=== PATIENT | male | born 1930 | race Caucasian/White ===

== ENCOUNTER 2016-12-08 12:04 | Inpatient (IN) | payer MEDICARE ==
[2016-12-08] MEDS ORDERED: SODIUM CHLORIDE 0.9% 500 ML IV STA (12:15)
[2016-12-08 12:17] LABS: Glucose,Whole Blood 250 mg/dL (75-99)
--- NOTE | 2016-12-08 12:39 | ED ---
General Adult HPI - General Chief complaint: Altered Mental Status Stated complaint: Alter mental staus Time Seen by Provider: 12/08/16 12:09 Source: EMS, RN notes reviewed, old records reviewed Mode of arrival: EMS Limitations: altered mental status - History of Present Illness Initial comments: This is a 86-year-old male here for evaluation. This patient does for evaluation regarding weakness. Patient himself has no complaints denies any pain denies any issues. Patient sent in for evaluation of elevated white blood cell count. Increasing weakness. Patient is sent from [facility], [facility] facility - Related Data Home Medications Medication Instructions Recorded Confirmed Apixaban [Eliquis] 2.5 mg PO BID@0800,199912/08/16 12/08/16 Aspirin EC [Ecotrin Low Dose] 81 mg PO DAILY@79912/08/16 12/08/16 Atorvastatin Calcium [Lipitor] 20 mg PO HS@199912/08/16 12/08/16 Cholecalciferol (Vitamin D3) 2,000 unit PO DAILY@79912/08/16 12/08/16 [Vitamin D3] Febuxostat [Uloric] 40 mg PO DAILY@79912/08/16 12/08/16 Furosemide [Lasix] 40 mg PO DAILY@79912/08/16 12/08/16 Latanoprost [Xalatan 0.005%] 1 drop BOTH EYES HS@199912/08/16 12/08/16 Levofloxacin [Levaquin] 750 mg PO HS@199912/08/16 12/08/16 Lisinopril [Zestril] 10 mg PO HS@199912/08/16 12/08/16 Magnesium Hydroxide [Milk of 2,400 mg PO DAILY PRN 12/08/16 12/08/16 Magnesia] Memantine HCl [Namenda Xr] 14 mg PO DAILY@79912/08/16 12/08/16 Rivastigmine [Exelon 13.3MG/24Hr 1 patch TRANSDERM DAILY@79912/08/16 12/08/16 Patch] Tamsulosin HCl [Flomax] 0.4 mg PO DAILY@79912/08/16 12/08/16 sitaGLIPtin [Januvia] 50 mg PO DAILY@79912/08/16 12/08/16 Allergies Allergy/AdvReac Type Severity Reaction Status Date / Time shellfish derived [Shellfish] Allergy Unknown Verified 12/08/16 12:22 Review of Systems ROS Statement: Those systems with pertinent positive or pertinent negative responses have been documented in the HPI. ROS Other: All systems not noted in ROS Statement are negative. Past Medical History Past Medical History: Atrial Fibrillation, Dementia, Diabetes Mellitus, Hyperlipidemia, Hypertension History of Any Multi-Drug Resistant Organisms: None Reported Past Surgical History: Heart Catheterization With Stent, Hernia Repair Past Psychological History: No Psychological Hx Reported Smoking Status: Former smoker Past Alcohol Use History: None Reported Past Drug Use History: None Reported General Exam Limitations: altered mental status General appearance: alert, in no apparent distress Head exam: Present: atraumatic, normocephalic, normal inspection Eye exam: Present: normal appearance, PERRL, EOMI. Absent: scleral icterus, conjunctival injection, periorbital swelling ENT exam: Present: normal exam, mucous membranes moist Neck exam: Present: normal inspection. Absent: tenderness, meningismus, lymphadenopathy Respiratory exam: Present: normal lung sounds bilaterally. Absent: respiratory distress, wheezes, rales, rhonchi, stridor Cardiovascular Exam: Present: regular rate, normal rhythm, normal heart sounds. Absent: systolic murmur, diastolic murmur, rubs, gallop, clicks GI/Abdominal exam: Present: soft, normal bowel sounds. Absent: distended, tenderness, guarding, rebound, rigid Extremities exam: Present: normal inspection, full ROM, normal capillary refill. Absent: tenderness, pedal edema, joint swelling, calf tenderness Back exam: Present: normal inspection Neurological exam: Present: alert, oriented X3, CN II-XII intact Psychiatric exam: Present: normal affect, normal mood Skin exam: Present: warm, dry, intact, normal color. Absent: rash Course Vital Signs 12/08/16 12/08/16 12/08/16 12:08 12:50 13:17 Temperature 98.7 F Pulse Rate 80 78 80 Respiratory 20 Rate Blood Pressure 108/64 109/51 135/63 O2 Sat by Pulse 96 96 98 Oximetry 12/08/16 13:47 Temperature Pulse Rate 76 Respiratory Rate Blood Pressure 125/63 O2 Sat by Pulse 96 Oximetry - Reevaluation(s) Reevaluation #1: 12/08/16 14:21 No improvement clinical, condition EKG Findings - EKG Comments: EKG Findings:: EKG shows A. fib rate of 82, QRS 88, QTc 467 Medical Decision Making - Medical Decision Making 86 male to the ER for evaluation for weakness, will admit with going Elevated white count, will admit for blood cultures, IV antibiotics prophylactic, rehydration - Lab Data Result diagrams: 12/08/16 12:29 12/08/16 12:29 Lab Results 12/08/16 12/08/16 12/08/16 Range/Units 12:15 12:29 12:29 WBC 15.6 H (3.8-10.6) k/uL RBC 3.94 L (4.30-5.90) m/uL Hgb 12.7 L (13.0-17.5) gm/dL Hct 37.6 L (39.0-53.0) % MCV 95.6 (80.0-100.0) fL MCH 32.3 (25.0-35.0) pg MCHC 33.7 (31.0-37.0) g/dL RDW 13.7 (11.5-15.5) % Plt Count 413 (150-450) k/uL Neutrophils % 88 % Lymphocytes % 6 % Monocytes % 4 % Eosinophils % 1 % Basophils % 0 % Neutrophils # 13.7 H (1.3-7.7) k/uL Lymphocytes # 0.9 L (1.0-4.8) k/uL Monocytes # 0.7 (0-1.0) k/uL Eosinophils # 0.1 (0-0.7) k/uL Basophils # 0.0 (0-0.2) k/uL PT (9.0-12.0) sec INR (<1.2) APTT (22.0-30.0) sec Sodium (137-145) mmol/L Potassium (3.5-5.1) mmol/L Chloride (98-107) mmol/L Carbon Dioxide (22-30) mmol/L Anion Gap mmol/L BUN (9-20) mg/dL Creatinine (0.66-1.25) mg/dL Est GFR (MDRD) Af Amer (>60 ml/min/1.73 sqM) Est GFR (MDRD) Non-Af (>60 ml/min/1.73 sqM) Glucose (74-99) mg/dL POC Glucose (mg/dL) 250 H (75-99) mg/dL POC Glu Offal Baler Deborah Barber Calcium (8.4-10.2) mg/dL Phosphorus (2.5-4.5) mg/dL Magnesium (1.6-2.3) mg/dL Total Bilirubin (0.2-1.3) mg/dL AST (17-59) U/L ALT (21-72) U/L Alkaline Phosphatase (38-126) U/L Total Creatine Kinase 148 (55-170) U/L CK-MB (CK-2) 0.7 (0.0-2.4) ng/mL CK-MB (CK-2) Rel Index 0.5 Troponin I 0.034 (0.000-0.034) ng/mL Total Protein (6.3-8.2) g/dL Albumin (3.5-5.0) g/dL Urine Color Urine Appearance (Clear) Urine pH (5.0-8.0) Ur Specific [place] (1.001-1.035) Urine Protein (Negative) Urine Glucose (UA) (Negative) Urine Ketones (Negative) Urine Blood (Negative) Urine Nitrite (Negative) Urine Bilirubin (Negative) Urine Urobilinogen (<2.0) mg/dL Ur Leukocyte Esterase (Negative) 12/08/16 12/08/16 12/08/16 Range/Units 12:29 12:29 12:40 WBC (3.8-10.6) k/uL RBC (4.30-5.90) m/uL Hgb (13.0-17.5) gm/dL Hct (39.0-53.0) % MCV (80.0-100.0) fL MCH (25.0-35.0) pg MCHC (31.0-37.0) g/dL RDW (11.5-15.5) % Plt Count (150-450) k/uL Neutrophils % % Lymphocytes % % Monocytes % % Eosinophils % % Basophils % % Neutrophils # (1.3-7.7) k/uL Lymphocytes # (1.0-4.8) k/uL Monocytes # (0-1.0) k/uL Eosinophils # (0-0.7) k/uL Basophils # (0-0.2) k/uL PT 11.9 (9.0-12.0) sec INR 1.2 H (<1.2) APTT 23.1 (22.0-30.0) sec Sodium 159 H (137-145) mmol/L Potassium 3.9 (3.5-5.1) mmol/L Chloride 118 H (98-107) mmol/L Carbon Dioxide 30 (22-30) mmol/L Anion Gap 11 mmol/L BUN 66 H (9-20) mg/dL Creatinine 2.30 H (0.66-1.25) mg/dL Est GFR (MDRD) Af Amer 33 (>60 ml/min/1.73 sqM) Est GFR (MDRD) Non-Af 27 (>60 ml/min/1.73 sqM) Glucose 255 H (74-99) mg/dL POC Glucose (mg/dL) (75-99) mg/dL POC Glu Offal Baler ID Calcium 9.0 (8.4-10.2) mg/dL Phosphorus 4.2 (2.5-4.5) mg/dL Magnesium 2.5 H (1.6-2.3) mg/dL Total Bilirubin 0.6 (0.2-1.3) mg/dL AST 40 (17-59) U/L ALT 60 (21-72) U/L Alkaline Phosphatase 94 (38-126) U/L Total Creatine Kinase (55-170) U/L CK-MB (CK-2) (0.0-2.4) ng/mL CK-MB (CK-2) Rel Index Troponin I (0.000-0.034) ng/mL Total Protein 5.4 L (6.3-8.2) g/dL Albumin 2.9 L (3.5-5.0) g/dL Urine Color Yellow Urine Appearance Clear (Clear) Urine pH 6.5 (5.0-8.0) Ur Specific [place] 1.018 (1.001-1.035) Urine Protein Negative (Negative) Urine Glucose (UA) Negative (Negative) Urine Ketones Negative (Negative) Urine Blood Negative (Negative) Urine Nitrite Negative (Negative) Urine Bilirubin Negative (Negative) Urine Urobilinogen <2.0 (<2.0) mg/dL Ur Leukocyte Esterase Negative (Negative) - Radiology Data Radiology results: report reviewed (Chest x-ray pending), image reviewed Disposition Clinical Impression: Altered mental status, Weakness, Leukocytosis Disposition: ADMITTED IP TO THIS [facility] Condition: Fair Referrals: Atif Hernandez MD [Primary Care Provider] - 1-2 days
[2016-12-08] MEDS: SODIUM CHLORIDE 0.9% 1,000 ML IV STA ×2 (12:48→16:35)
[2016-12-08 12:49] LABS: Basophils % (A) 0 %; CH 31.3; CHCM 32.9; Eosinophils # (A) 0.1 k/uL (0-0.7); Eosinophils % (A) 1 %; HCT 37.6 % (39.0-53.0); HDW 3.26; HGB 12.7 gm/dL (13.0-17.5); Luc # (Auto) 0.22; Luc % (Auto) 1; Lymphocytes # (A) 0.9 k/uL (1.0-4.8); Lymphocytes % (A) 6 %; MCH 32.3 pg (25.0-35.0); MCHC 33.7 g/dL (31.0-37.0); MCV 95.6 fL (80.0-100.0); Mean Platelet Volume 7.5; Monocytes # (A) 0.7 k/uL (0-1.0); Monocytes % (A) 4 %; Neutrophils # (A) 13.7 k/uL (1.3-7.7); Neutrophils % (A) 88 %; RBC 3.94 m/uL (4.30-5.90); RDW 13.7 % (11.5-15.5); WBC 15.6 k/uL (3.8-10.6); WBC (Perox) 15.38
[2016-12-08 12:57] LABS: INR 1.2 (<1.2); Partial Thromboplastin Time 23.1 sec (22.0-30.0); Prothrombin Time 11.9 sec (9.0-12.0)
[2016-12-08 12:58] LABS: Appearance,Urine Clear (Clear); Bilirubin,Urine Negative (Negative); Glucose,Urine (UA) Negative (Negative); Ketones,Urine Negative (Negative); Leukocyte Esterase,Urine Negative (Negative); Nitrite,Urine Negative (Negative); PH, Urine 6.5 (5.0-8.0); Protein,Urine Negative (Negative); Specific Gravity,Urine 1.018 (1.001-1.035); UA Billing (MACRO vs. MICRO) CHEM; Urobilinogen,Urine <2.0 mg/dL (<2.0)
[2016-12-08 12:59] LABS: Magnesium 2.5 mg/dL (1.6-2.3); Phosphorous 4.2 mg/dL (2.5-4.5); Potassium 3.9 mmol/L (3.5-5.1); Total Bilirubin 0.6 mg/dL (0.2-1.3); Total Protein 5.4 g/dL (6.3-8.2)
[2016-12-08 13:28] LABS: Creatine Kinase MB 0.7 ng/mL (0.0-2.4); Troponin I 0.034 ng/mL (0.000-0.034)
[2016-12-08] MEDS ORDERED: SODIUM CHLORIDE 0.9% 1,000 ML IV ONE (14:20)
[2016-12-08] MEDS ORDERED: LEVOFLOXACIN 750MG-D5W PMX 750 MG in DEXTROSE/WATER 1 150ML.BAG IVPB STA (14:20)
--- NOTE | 2016-12-08 14:42 | XR ---
EXAMINATION TYPE: XR chest 2V DATE OF EXAM: 12/08/2016 COMPARISON: Prior chest x-ray 08/27/2009 HISTORY: Pain TECHNIQUE: Frontal and lateral views of the chest are obtained. FINDINGS: Patient is rotated. Cardiac mediastinal silhouette, pulmonary vascularity and dionte are sta ble. There is no evident pneumothorax, or pleural effusion. Surgical clips present in the upper abdom en. The aorta is dense. Difficult to exclude some increased density at the level of the lingula. IMPRESSION: Rotated exam. There may be some minimal airspace disease, scarring or atelectasis at the level of the lingula, follow-up PA and lateral chest x-ray may be of benefit.
--- NOTE | 2016-12-08 15:19 | CT ---
EXAMINATION TYPE: CT brain wo con DATE OF EXAM: 12/08/2016 COMPARISON: NONE INDICATION: Altered mental status. DLP: 1060.50 mGycm, Automated exposure control for dose reduction was used. CONTRAST: None CT of the brain is performed utilizing 3 mm thick sections through the posterior fossa and 3 mm thick sections through the remaining calvarium. Study is performed within 24 hours of arrival to the hosp ital. No abnormal hyperdensity is present to suggest an acute intracranial hemorrhage. No mass lesion is evident. No acute infarcts are evident. Ventricles and sulci are prominent for the patient age. Paranasal sinuses and mastoid air cells within the [id number] are clear. IMPRESSIONS: 1. Atrophy
--- NOTE | 2016-12-08 15:37 | XR ---
EXAMINATION TYPE: XR Hip LT and AP Pelvis DATE OF EXAM: 12/08/2016 COMPARISON: NONE HISTORY: Left hip pain TECHNIQUE: A single AP view of the pelvis is obtained. Two views of the left hip are obtained. FINDINGS: There is no acute fracture/dislocation evident in the pelvis. The hip and sacroiliac join ts appear symmetric. There is some remodeling at the hips, correlate to exclude femoral acetabular i mpingement on the left. The overlying soft tissue appears unremarkable. There are vascular calcificat ions present. Two views of left hip show no acute fracture or dislocation. No focal lytic or sclerotic lesion seen in the proximal left femur. The overlying soft tissue is unremarkable. IMPRESSION: There is no acute fracture or dislocation in the pelvis or left hip. Correlate for possi ble osteoarthritis, femoral acetabular impingement syndrome.
[2016-12-08] MEDS ORDERED: MAGNESIUM HYDROXIDE 2,400 MG/10 ML CUP PO PRN (16:39)
[2016-12-08 17:51] LABS: Glucose,Whole Blood 298 mg/dL (75-99)
[2016-12-08] MEDS: INSULIN LISPRO (humaLOG) 300 UNIT/3 ML VIAL SQ SCH ×2 (18:00→20:38)
[2016-12-08 19:12] LABS: Calcium 8.7 mg/dL (8.4-10.2); Potassium 4.3 mmol/L (3.5-5.1)
[2016-12-08] MEDS: DEXTROSE 5% IN WATER 1,000 ML IV SCH (19:42)
[2016-12-08] MEDS: LATANOPROST 0.005% OPHTH DROPS 2.5 ML BTL BOTH EYES SCH (19:42)
[2016-12-08] MEDS: ATORVASTATIN 20 MG TAB PO SCH (19:43)
[2016-12-08] MEDS: MEMANTINE 5 MG TAB PO SCH (19:43)
[2016-12-08] MEDS: APIXABAN 2.5 MG TABLET PO SCH (19:43)
[2016-12-08 20:41] LABS: Glucose,Whole Blood 257 mg/dL (75-99)
[2016-12-08 22:06] LABS: Hemoglobin A1C 7.2 % (4.2-6.1)
[2016-12-09 00:21] LABS: Calcium 8.7 mg/dL (8.4-10.2); Potassium 3.7 mmol/L (3.5-5.1)
[2016-12-09] MEDS: DEXTROSE 5% IN WATER 1,000 ML IV SCH ×3 (03:16→21:44)
[2016-12-09 07:17] LABS: Glucose,Whole Blood 225 mg/dL (75-99)
[2016-12-09] MEDS: ALLOPURINOL 100 MG TAB PO SCH (07:26)
[2016-12-09] MEDS: APIXABAN 2.5 MG TABLET PO SCH ×2 (07:26→21:31)
[2016-12-09] MEDS: ASPIRIN 81 MG CHEW PO SCH (07:26)
[2016-12-09] MEDS: LINAGLIPTIN 5 MG TABLET PO SCH (07:27)
[2016-12-09] MEDS: CHOLECALCIFEROL 1,000 UNIT TAB PO SCH (07:27)
[2016-12-09] MEDS: TAMSULOSIN 0.4 MG CAP.ER.24H PO SCH (07:27)
[2016-12-09] MEDS: MEMANTINE 5 MG TAB PO SCH ×2 (07:27→21:32)
[2016-12-09] MEDS: RIVASTIGMINE 13.3MG/24HR PATCH TRANSDERM SCH (07:49)
[2016-12-09] MEDS: INSULIN LISPRO (humaLOG) 300 UNIT/3 ML VIAL SQ SCH ×4 (07:49→21:33)
[2016-12-09] MEDS ORDERED: ENOXAPARIN 40 MG/0.4 ML SYRINGE SQ SCH (09:00)
[2016-12-09 09:03] LABS: Basophils % (A) 0 %; CH 32.4; CHCM 33.3; Eosinophils # (A) 0.1 k/uL (0-0.7); Eosinophils % (A) 1 %; HCT 36.7 % (39.0-53.0); HDW 3.25; HGB 11.7 gm/dL (13.0-17.5); Luc # (Auto) 0.14; Luc % (Auto) 1; Lymphocytes # (A) 0.8 k/uL (1.0-4.8); Lymphocytes % (A) 6 %; MCH 31.3 pg (25.0-35.0); MCHC 31.9 g/dL (31.0-37.0); MCV 98.1 fL (80.0-100.0); Mean Platelet Volume 7.9; Monocytes # (A) 0.5 k/uL (0-1.0); Monocytes % (A) 3 %; Neutrophils # (A) 12.6 k/uL (1.3-7.7); Neutrophils % (A) 89 %; RBC 3.75 m/uL (4.30-5.90); WBC 14.2 k/uL (3.8-10.6); WBC (Perox) 14.44
[2016-12-09 09:21] LABS: Calcium 8.5 mg/dL (8.4-10.2); Potassium 3.7 mmol/L (3.5-5.1)
[2016-12-09 12:21] LABS: Glucose,Whole Blood 189 mg/dL (75-99)
[2016-12-09] MEDS ORDERED: LEVOFLOXACIN 750 MG TAB PO SCH (14:00)
--- NOTE | 2016-12-09 14:09 | P.HPIM ---
History of Present Illness H&P Date: 12/09/16 Chief Complaint: Mental status change This is an 86-year-old male patient of Dr. Hernandez with a past medical history of diabetes mellitus type 2, benign prostatic hypertrophy, hypertension , hyperlipidemia, coronary artery disease status post 3 stents, glaucoma, chronic atrial fibrillation on eliquis, dementia, obstructive sleep apnea, gout , psoriasis, patient is wheelchair bound and currently residing at [facility]. Patient's and daughter are at the bedside and give history. Apparently patient had a couple strokes one half weeks ago was the most recent. He has had difficulty of swallowing and holds food in his mouth for the last couple of days and also choking on food. He does normally recognize his and daughter and at this time family recognizes his but does not seem to be able to recall his daughter's name. He does not currently follow with the neurologist. He also has pain to the left hip with left leg contracture which is new. He came into [facility] emergency center for evaluation. He was found to have an elevated white count of 15.66, UN 66 and creatinine 2.3 and sodium of 159. Urinalysis was clear, nitrate and leukoesterase negative. Chest x-ray showed scarring or atelectasis at the level of the lingula. CAT scan of the brain showed atrophy. Left hip and pelvis x-rays show correlate for osteoarthritis, femoral acetabular impingement syndrome. No acute fracture or dislocation of the pelvis or left hip. Patient was admitted to the [facility] floor and consult requested with Dr. Tomas for acute renal failure. The therapy has evaluated him and plans to start a pured diet with thickened liquids. PT and OT added. Neurology consult also added. Blood culture and urine culture are in process. There is a stage II pressure ulcer to the right foot present on admission and waffle boot has been placed. Review of Systems ROS unobtainable: due to mental status All systems: negative Constitutional: Reports weakness, Denies chills, Denies fever Eyes: denies blurred vision, denies pain Ears, nose, mouth and throat: Reports dysphagia, Denies headache, Denies mouth pain, Denies sore throat Cardiovascular: Denies chest pain, Denies shortness of breath Respiratory: Reports cough, Denies cough with sputum, Denies dyspnea, Denies excessive sputum, Denies hemoptysis, Denies home oxygen, Denies wheezing Gastrointestinal: Denies abdominal pain, Denies diarrhea, Denies nausea, Denies vomiting Genitourinary: Reports incontinence Musculoskeletal: Denies myalgias Musculoskeletal: left: hip pain, hip stiffness Integumentary: Reports wounds, Denies pruritus, Denies rash Neurological: Denies numbness, Denies weakness Psychiatric: Denies anxiety, Denies depression Endocrine: Denies fatigue, Denies weight change Past Medical History Past Medical History: Atrial Fibrillation, Coronary Artery Disease (CAD), Dementia, Diabetes Mellitus, Hyperlipidemia, Hypertension, Osteoarthritis (OA), Prostate Disorder, Sleep Apnea/CPAP/BIPAP Additional Past Medical History / Comment(s): gout, psoriases,incont of stool and urine wears a brief. has a bridge not sure if upper or lower. History of Any Multi-Drug Resistant Organisms: None Reported Past Surgical History: Cholecystectomy, Heart Catheterization With Stent, Hernia Repair Additional Past Surgical History / Comment(s): "3 cardaic stents", [place] cataracts , colonoscopy Past Anesthesia/Blood Transfusion Reactions: No Reported Reaction Date of Last Stent Placement:: UNK Smoking Status: Former smoker Additional Past Alcohol Use History / Comment(s): Patient was a smoker from 1949 and quit in 1968 at one pack per day. Patient is currently residing at [facility] foster assisted. Patient is nonambulatory and wheelchair bound. - Past Family History Father Family Medical History: Myocardial Infarction (PR) Additional Family Medical History / Comment(s): AT AGE 87 Mother Family Medical History: Diabetes Mellitus Additional Family Medical History / Comment(s): Mother at age 70 with consultations from diabetes. Brother(s) Additional Family Medical History / Comment(s): Patient had 3 brothers and all have passed. They had history of diabetes with complications, tremors and one brother had abdominal aneurysm. Sister(s) Additional Family Medical History / Comment(s): Patient had a total of 5 sisters and 3 have passed. They had history of atrial fibrillation and one from natural causes. Patient has 2 sisters still alive and one has atrial fibrillation. Son(s) Additional Family Medical History / Comment(s): Patient had 1 son that from a neurosarcoma. Patient has one daughter alive with no major medical problems. Medications and Allergies Home Medications Medication Instructions Recorded Confirmed Type Apixaban [Eliquis] 2.5 mg PO BID@08,199912/08/16 12/08/16 History Aspirin EC [Ecotrin Low Dose] 81 mg PO DAILY@79912/08/16 12/08/16 History Atorvastatin Calcium [Lipitor] 20 mg PO HS@199912/08/16 12/08/16 History Cholecalciferol (Vitamin D3) 2,000 unit PO DAILY@79912/08/16 12/08/16 History [Vitamin D3] Febuxostat [Uloric] 40 mg PO DAILY@79912/08/16 12/08/16 History Furosemide [Lasix] 40 mg PO DAILY@79912/08/16 12/08/16 History Latanoprost [Xalatan 0.005%] 1 drop BOTH EYES HS@199912/08/16 12/08/16 History Levofloxacin [Levaquin] 750 mg PO HS@199912/08/16 12/08/16 History Lisinopril [Zestril] 10 mg PO HS@199912/08/16 12/08/16 History Magnesium Hydroxide [Milk of 2,400 mg PO DAILY PRN 12/08/16 12/08/16 History Magnesia] Memantine HCl [Namenda Xr] 14 mg PO DAILY@79912/08/16 12/08/16 History Rivastigmine [Exelon 13.3MG/24Hr 1 patch TRANSDERM DAILY@79912/08/16 12/08/16 History Patch] Tamsulosin HCl [Flomax] 0.4 mg PO DAILY@79912/08/16 12/08/16 History sitaGLIPtin [Januvia] 50 mg PO DAILY@79912/08/16 12/08/16 History Allergies Allergy/AdvReac Type Severity Reaction Status Date / Time shellfish derived [Shellfish] Allergy Unknown Verified 12/08/16 12:22 Physical Exam Vitals: Vital Signs Temp Pulse Pulse Resp BP BP Pulse Ox 12/09/16 07:00 97.7 F 79 18 125/65 99 12/08/16 23:00 98.7 F 76 16 108/60 100 12/08/16 16:00 96.9 F L 83 18 133/73 96 12/08/16 15:42 84 18 146/69 100 12/08/16 14:50 97.4 F L 79 16 108/63 98 12/08/16 13:47 76 125/63 96 12/08/16 13:17 80 135/63 98 12/08/16 12:50 78 109/51 96 12/08/16 12:08 98.7 F 80 20 108/64 96 Intake and Output 12/08/16 12/09/16 12/09/16 22:59 06:59 14:59 Other: Voiding Method Incontinent Incontinent Incontinent # Voids 1 1 Weight 86 kg Gen: This is an 86-year-old male patient. He is sitting up in bed and appears to be in no acute distress. HEENT: Head is atraumatic, normocephalic. Pupils equal, round. Sclerae is anicteric. NECK: Supple. No JVD. No lymphadenopathy. No thyromegaly. LUNGS: Clear to auscultation. No wheezes or rhonchi. No intercostal retractions. HEART: Regular rate and rhythm. No murmur. ABDOMEN: Soft. Bowel sounds are present. No masses. No tenderness. EXTREMITIES: No pedal edema. No calf tenderness. Contracture noted of the left leg. Waffle boot in place to the right foot. Spastic rigidity to the left upper arm. No tremors. NEUROLOGICAL: Patient is awake, alert and oriented x1. Patient is having trouble following simple commands. Results CBC & Chem 7: 12/10/16 07:48 12/10/16 07:48 Labs: Abnormal Lab Results - Last 24 Hours (Table) 12/08/16 12/08/16 12/08/16 Range/Units 12:15 12:29 12:29 WBC 15.6 H (3.8-10.6) k/uL RBC 3.94 L (4.30-5.90) m/uL Hgb 12.7 L (13.0-17.5) gm/dL Hct 37.6 L (39.0-53.0) % Neutrophils # 13.7 H (1.3-7.7) k/uL Lymphocytes # 0.9 L (1.0-4.8) k/uL INR (<1.2) Sodium 159 H (137-145) mmol/L Chloride 118 H (98-107) mmol/L Carbon Dioxide (22-30) mmol/L BUN 66 H (9-20) mg/dL Creatinine 2.30 H (0.66-1.25) mg/dL Glucose 255 H (74-99) mg/dL POC Glucose (mg/dL) 250 H (75-99) mg/dL Hemoglobin A1c (4.2-6.1) % Magnesium 2.5 H (1.6-2.3) mg/dL Total Protein 5.4 L (6.3-8.2) g/dL Albumin 2.9 L (3.5-5.0) g/dL 12/08/16 12/08/16 12/08/16 Range/Units 12:29 12:29 17:46 WBC (3.8-10.6) k/uL RBC (4.30-5.90) m/uL Hgb (13.0-17.5) gm/dL Hct (39.0-53.0) % Neutrophils # (1.3-7.7) k/uL Lymphocytes # (1.0-4.8) k/uL INR 1.2 H (<1.2) Sodium (137-145) mmol/L Chloride (98-107) mmol/L Carbon Dioxide (22-30) mmol/L BUN (9-20) mg/dL Creatinine (0.66-1.25) mg/dL Glucose (74-99) mg/dL POC Glucose (mg/dL) 298 H (75-99) mg/dL Hemoglobin A1c 7.2 H (4.2-6.1) % Magnesium (1.6-2.3) mg/dL Total Protein (6.3-8.2) g/dL Albumin (3.5-5.0) g/dL 12/08/16 12/08/16 12/08/16 Range/Units 18:45 20:34 21:39 WBC (3.8-10.6) k/uL RBC (4.30-5.90) m/uL Hgb (13.0-17.5) gm/dL Hct (39.0-53.0) % Neutrophils # (1.3-7.7) k/uL Lymphocytes # (1.0-4.8) k/uL INR (<1.2) Sodium 159 H 158 H (137-145) mmol/L Chloride 119 H (98-107) mmol/L Carbon Dioxide 31 H (22-30) mmol/L BUN 64 H (9-20) mg/dL Creatinine 2.07 H (0.66-1.25) mg/dL Glucose 298 H (74-99) mg/dL POC Glucose (mg/dL) 257 H (75-99) mg/dL Hemoglobin A1c (4.2-6.1) % Magnesium (1.6-2.3) mg/dL Total Protein (6.3-8.2) g/dL Albumin (3.5-5.0) g/dL 12/08/16 12/09/16 12/09/16 Range/Units 23:46 06:54 08:43 WBC (3.8-10.6) k/uL RBC (4.30-5.90) m/uL Hgb (13.0-17.5) gm/dL Hct (39.0-53.0) % Neutrophils # (1.3-7.7) k/uL Lymphocytes # (1.0-4.8) k/uL INR (<1.2) Sodium 157 H 155 H (137-145) mmol/L Chloride 119 H 119 H (98-107) mmol/L Carbon Dioxide (22-30) mmol/L BUN 59 H 51 H (9-20) mg/dL Creatinine 1.90 H 1.86 H (0.66-1.25) mg/dL Glucose 148 H 258 H (74-99) mg/dL POC Glucose (mg/dL) 225 H (75-99) mg/dL Hemoglobin A1c (4.2-6.1) % Magnesium (1.6-2.3) mg/dL Total Protein (6.3-8.2) g/dL Albumin (3.5-5.0) g/dL 12/09/16 Range/Units 08:45 WBC 14.2 H (3.8-10.6) k/uL RBC 3.75 L (4.30-5.90) m/uL Hgb 11.7 L (13.0-17.5) gm/dL Hct 36.7 L (39.0-53.0) % Neutrophils # 12.6 H (1.3-7.7) k/uL Lymphocytes # 0.8 L (1.0-4.8) k/uL INR (<1.2) Sodium (137-145) mmol/L Chloride (98-107) mmol/L Carbon Dioxide (22-30) mmol/L BUN (9-20) mg/dL Creatinine (0.66-1.25) mg/dL Glucose (74-99) mg/dL POC Glucose (mg/dL) (75-99) mg/dL Hemoglobin A1c (4.2-6.1) % Magnesium (1.6-2.3) mg/dL Total Protein (6.3-8.2) g/dL Albumin (3.5-5.0) g/dL Microbiology - Last 24 Hours (Table) 12/08/16 12:40 Urine Culture - Preliminary Urine,Catheterized Thrombosis Risk Factor Assmnt - DVT/VTE Prophylaxis DVT/VTE Prophylaxis: Pharmacologic Prophylaxis ordered Assessment and Plan Plan: 1. Metabolic encephalopathy secondary to hypernatremia, dehydration, acute kidney injury and possible aspiration pneumonia. Continue IV fluids of D5 at 100 mL per hour. Consult with neurology, nephrology. PT, OT, speech therapy. Diet recommended by speech is pureed with thickened liquids. IV antibiotics switched to Zosyn. Lasix and lisinopril placed on hold. 2. Chronic atrial fibrillation. Continue eliquis. 3. Coronary artery disease status post 3 stents. Continue Lipitor 20 mg at bedtime, aspirin 81 mg daily. 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 Patient has been on Exelon patch. Neurology consult. 5. Left hip pain and contracture with negative x-rays. Physical therapy and occupational therapy. Patient is normally wheelchair bound. 6. Recent stroke. Continue aspirin 81 mg daily, Lipitor 20 mg daily. 7. Diabetes mellitus type 2. Continue Januvia/tradjenta and Humalog scale before meals and at bedtime. 8. Benign prostatic hypertrophy. Continue Flomax 0.4 mg daily. 9. Hypertension. Lisinopril and Lasix placed on hold. 10. Gout. Continue Uloric. 11. Hyperlipidemia. Continue Lipitor. 12. DVT prophylaxis. Patient is on eliquis. 13. Gastric intestinal prophylaxis. Pepcid. 14. Obstructive sleep apnea on CPAP Patient will be admitted to the hospital for a minimum of 2 night stay. Discharge plan: Patient will be returning to [facility] Impression and plan of care have been directed as dictated by the signing physician. Angela Hartley nurse practitioner acting as scribe for signing physician.
[2016-12-09] MEDS: PIPERACILLIN-TAZOBACTAM 3.375 GM in DEXTROSE/WATER 1 50ML.BAG IVPB SCH ×2 (15:00→23:38)
[2016-12-09 15:38] VITALS: BMI 29.7
[2016-12-09 16:51] LABS: Glucose,Whole Blood 223 mg/dL (75-99)
[2016-12-09 21:25] LABS: Glucose,Whole Blood 132 mg/dL (75-99)
[2016-12-09] MEDS: LATANOPROST 0.005% OPHTH DROPS 2.5 ML BTL BOTH EYES SCH (21:32)
[2016-12-09] MEDS: ATORVASTATIN 20 MG TAB PO SCH (21:32)
--- NOTE | 2016-12-09 21:55 | CONS ---
CONSULTATION DATE OF CONSULTATION: 12/09/2016 REASON FOR CONSULT: Renal failure, hypernatremia. HISTORY OF PRESENT ILLNESS: Patient is an 86-year-old male who was admitted to the hospital with decreased oral intake. He had been getting progressively weak and was not able to swallow, according to the family. The patient was noted to have a serum sodium of 159 on admission. He was initially maintained on normal saline. Sodium stayed about 159 and then his IV fluids were switched to D5W. Today serum sodium is at 155. Serum creatinine was 2.3 on initial admission, now down to 1.86. We do not have previous labs available for comparison. Currently patient is incontinent and in diapers. His blood pressure was on the lower side with systolic around 108 mmHg. At home there is no history of use of NSAIDs. Patient was on SARAHI inhibitors. PAST MEDICAL HISTORY: 1. Atrial fibrillation. 2. Dementia. 3. Type 2 diabetes. 4. Hyperlipidemia. 5. Hypertension. 6. Coronary artery disease. PAST SURGICAL HISTORY: 1. Cardiac catheterization with coronary stent placement. 2. Hernia repair. Patient is a former smoker. MEDICATIONS: Medications at home included: 1. Namenda. 2. Flomax. 3. Januvia. 4. Vitamin D3. 5. Uloric. 6. Lasix. 7. Levaquin. 8. Zestril. 9. Milk of magnesia. 10.Lipitor. 11.Eliquis. 12.Aspirin. ALLERGIES: ALLERGIES include SHELLFISH. PHYSICAL EXAMINATION: On examination, patient is currently lying in bed. He is comfortable. He is not in any acute distress. Blood pressure is 105/57, heart rate 66 per minute. He is afebrile. EXAMINATION OF THE HEART: S1, S2. EXAMINATION OF LUNGS: Bilateral breath sounds are heard. ABDOMEN: Soft, non-tender, obese. Examination of lower extremities shows no evidence of edema. Patient is weak on his left side. He has had a previous stroke. His left leg is flexed and, according to family, he is not able to extend it. Patient is moving his right arm and right leg appropriately. 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 LABS: Sodium 155, potassium 3.7, BUN 51, serum creatinine 1.86, hemoglobin 11.7 g/dL. UA is completely benign. ASSESSMENT: 1. Acute kidney injury, prerenal, currently improving with IV hydration. Continue with IV fluids. 2. Hypernatremia associated with free water deficit and volume depletion. Continue with the D5W for now. 3. Decreased oral intake in a patient with underlying dementia and inability to swallow. He was being maintained on a pureed diet with thickened liquids. He will be evaluated by PT and OT and Speech Therapy. 4. Chronic atrial fibrillation, maintained on Eliquis. 5. Coronary artery disease, status post coronary stents. PLAN: Continue with the D5W for now. Repeat labs in a.m. Avoid any other nephrotoxic agents. Continue to hold off on SARAHI inhibitors for now. Thank you for this consultation. We will continue to follow the patient with you during his hospitalization. MMODL / IJN: [id number] /
[2016-12-10 07:24] LABS: Glucose,Whole Blood 282 mg/dL (75-99)
[2016-12-10] MEDS: INSULIN LISPRO (humaLOG) 300 UNIT/3 ML VIAL SQ SCH ×4 (08:13→21:13)
[2016-12-10] MEDS: ASPIRIN 81 MG CHEW PO SCH (08:14)
[2016-12-10] MEDS: CHOLECALCIFEROL 1,000 UNIT TAB PO SCH (08:14)
[2016-12-10] MEDS: PIPERACILLIN-TAZOBACTAM 3.375 GM in DEXTROSE/WATER 1 50ML.BAG IVPB SCH ×2 (08:14→17:02)
[2016-12-10] MEDS: ALLOPURINOL 100 MG TAB PO SCH (08:14)
[2016-12-10] MEDS: LINAGLIPTIN 5 MG TABLET PO SCH (08:14)
[2016-12-10] MEDS: RIVASTIGMINE 13.3MG/24HR PATCH TRANSDERM SCH (08:14)
[2016-12-10] MEDS: TAMSULOSIN 0.4 MG CAP.ER.24H PO SCH (08:15)
[2016-12-10] MEDS: FAMOTIDINE 20 MG TAB PO SCH (08:15)
[2016-12-10] MEDS: MEMANTINE 5 MG TAB PO SCH ×2 (08:15→20:35)
[2016-12-10 08:27] LABS: INR 1.3 (<1.2)
[2016-12-10 08:42] LABS: Calcium 8.5 mg/dL (8.4-10.2); Potassium 3.8 mmol/L (3.5-5.1); Total Bilirubin 0.8 mg/dL (0.2-1.3); Total Protein 5.2 g/dL (6.3-8.2)
[2016-12-10 08:51] LABS: Basophils % (A) 0 %; CH 31.2; CHCM 32.8; Eosinophils # (A) 0.1 k/uL (0-0.7); Eosinophils % (A) 1 %; HCT 37.7 % (39.0-53.0); HDW 3.26; HGB 12.6 gm/dL (13.0-17.5); Luc # (Auto) 0.13; Luc % (Auto) 1; Lymphocytes # (A) 0.9 k/uL (1.0-4.8); Lymphocytes % (A) 6 %; MCH 31.8 pg (25.0-35.0); MCHC 33.3 g/dL (31.0-37.0); MCV 95.7 fL (80.0-100.0); Mean Platelet Volume 7.2; Monocytes # (A) 0.6 k/uL (0-1.0); Monocytes % (A) 4 %; Neutrophils # (A) 13.4 k/uL (1.3-7.7); Neutrophils % (A) 89 %; RBC 3.94 m/uL (4.30-5.90); RDW 13.5 % (11.5-15.5); WBC 15.1 k/uL (3.8-10.6); WBC (Perox) 15.41
--- NOTE | 2016-12-10 10:27 | P.PN ---
Subjective Patient is seen in follow-up for acute kidney injury and hypernatremia. His sodium level was 159 on admission and has been gradually improving. It is around 149 this morning. Creatinine was also 2.3 on admission and is down to 1.75 today. Patient's currently resting in bed. He is not a very reliable historian due to underlying dementia. Oral intake remains relatively poor. Hemodynamically stable. Vital signs are stable. General: The patient appeared well nourished and normally developed. HEENT: Head exam is unremarkable. Neck is without jugular venous distension. LUNGS: Lungs are clear to auscultation and percussion. Breath sounds decreased. HEART: Rate and Rhythm are regular. First and second heart sounds normal. No murmurs, rubs or gallops. ABDOMEN: Abdominal exam reveals normal bowel sounds. Non-tender and non- distended. No evidence of peritonitis. EXTREMITITES: No clubbing, cyanosis, or edema. Objective - Vital Signs Vital signs: Vital Signs Temp 96.4 F L 12/10/16 07:00 Pulse 77 12/10/16 07:00 Resp 16 12/10/16 07:00 BP 120/79 12/10/16 07:00 Pulse Ox 97 12/10/16 07:00 Intake & Output 12/09/16 12/10/16 12/10/16 18:59 06:59 18:59 Intake Total 850 Balance 850 Weight 86 kg Intake: Oral 850 Other: Voiding Method Incontinent Incontinent Incontinent # Voids 1 2 # Bowel Movements 2 - Labs CBC & Chem 7: 12/10/16 07:48 12/10/16 07:48 Labs: Abnormal Lab Results - Last 24 Hours (Table) 12/09/16 12/09/16 12/09/16 Range/Units 12:16 16:48 20:44 WBC (3.8-10.6) k/uL RBC (4.30-5.90) m/uL Hgb (13.0-17.5) gm/dL Hct (39.0-53.0) % Neutrophils # (1.3-7.7) k/uL Lymphocytes # (1.0-4.8) k/uL PT (9.0-12.0) sec INR (<1.2) Sodium (137-145) mmol/L Chloride (98-107) mmol/L BUN (9-20) mg/dL Creatinine (0.66-1.25) mg/dL Glucose (74-99) mg/dL POC Glucose (mg/dL) 189 H 223 H 132 H (75-99) mg/dL Total Protein (6.3-8.2) g/dL Albumin (3.5-5.0) g/dL 12/10/16 12/10/16 12/10/16 Range/Units 07:18 07:48 07:48 WBC 15.1 H (3.8-10.6) k/uL RBC 3.94 L (4.30-5.90) m/uL Hgb 12.6 L (13.0-17.5) gm/dL Hct 37.7 L (39.0-53.0) % Neutrophils # 13.4 H (1.3-7.7) k/uL Lymphocytes # 0.9 L (1.0-4.8) k/uL PT 13.0 H (9.0-12.0) sec INR 1.3 H (<1.2) Sodium (137-145) mmol/L Chloride (98-107) mmol/L BUN (9-20) mg/dL Creatinine (0.66-1.25) mg/dL Glucose (74-99) mg/dL POC Glucose (mg/dL) 282 H (75-99) mg/dL Total Protein (6.3-8.2) g/dL Albumin (3.5-5.0) g/dL 12/10/16 Range/Units 07:48 WBC (3.8-10.6) k/uL RBC (4.30-5.90) m/uL Hgb (13.0-17.5) gm/dL Hct (39.0-53.0) % Neutrophils # (1.3-7.7) k/uL Lymphocytes # (1.0-4.8) k/uL PT (9.0-12.0) sec INR (<1.2) Sodium 149 H (137-145) mmol/L Chloride 113 H (98-107) mmol/L BUN 40 H (9-20) mg/dL Creatinine 1.75 H (0.66-1.25) mg/dL Glucose 250 H (74-99) mg/dL POC Glucose (mg/dL) (75-99) mg/dL Total Protein 5.2 L (6.3-8.2) g/dL Albumin 2.7 L (3.5-5.0) g/dL Microbiology - Last 24 Hours (Table) 12/08/16 12:40 Urine Culture - Final Urine,Catheterized 12/08/16 12:29 Blood Culture - Preliminary Blood No Growth after 24 hours Assessment and Plan Plan: Assessment: #1. Nonoliguric acute kidney injury mostly prerenal due to poor oral intake and further worsened with the use of SARAHI inhibitor and diuretics. Improving. Creatinine down to 1.75 today. #2. Hypernatremia secondary to lack of oral water intake. Improving. #3. Chronic atrial fibrillation maintained on anticoagulation. #4. Dementia. Plan: Continue D5W to be run at 100 mL an hour. Encouraged oral intake, including water as able to tolerate. Avoid nephrotoxic agents and hypotensive episodes. Repeat electrolytes in the morning.
--- NOTE | 2016-12-10 11:14 | CONS ---
CONSULTATION DATE OF CONSULTATION: 12/09/2016 CHIEF COMPLAINT: Altered mental status. HISTORY OF PRESENT ILLNESS: Mr. Aleman is a pleasant 86-year-old, male, who is being evaluated by the neurology service per the request of Dr. Hernandez for altered mental status. The patient was brought into [facility] Emergency Room for increasing confusion for the past few days. The patient is a very poor historian and the history was obtained from the chart. The patient does have history of advanced Alzheimer's dementia and does have a baseline of disorientation. A CT scan of the brain was done, which showed no acute intracranial abnormalities. There was generalized atrophy seen. His CBC showed leukocytosis at 14.2 and mild anemia with a hemoglobin of 11.7. His basic metabolic profile showed hypernatremia at 155 and renal insufficiency with a BUN of 51 and creatinine of 1.86. His glucose level was elevated at 258. His urinalysis was normal. According to nursing staff, the patient had a recent stroke and his cognitive status has been worsened since then. He is on Eliquis and aspirin at home. At the time of my evaluation, the patient is lying in his bed and appears to be in no acute distress. He is awake and follows simple commands only. PAST MEDICAL HISTORY: Atrial fibrillation, coronary artery disease, Alzheimer's dementia, diabetes, dyslipidemia, hypertension, arthritis, obstructive sleep apnea, gout, history of cholecystectomy and hernia repair and coronary artery stent placement. SOCIAL HISTORY: The patient is a former smoker. There is no history of any alcohol or drug use. He currently resides at [facility] and is nonambulatory. FAMILY HISTORY: Positive for heart disease and diabetes. HOME MEDICATIONS: Reviewed in the chart. ALLERGIES: SHELL FISH. REVIEW OF SYSTEMS: Unable to obtain due to confusion. PHYSICAL EXAM: Vital signs show a temperature of 96.7, pulse 66, respiration 18, blood pressure 105/57. GENERAL APPEARANCE: The patient is a well-developed, elderly male, who appears to be in no acute distress. HEENT: Normocephalic, atraumatic, no facial asymmetry is seen. NECK: Supple with no masses felt. CARDIOVASCULAR: Regular rate and rhythm. ABDOMEN: Nontender, nondistended. Extremities showed trace edema with no clubbing seen. NEUROLOGICAL EXAM: The patient is awake and oriented to person only. He does follow simple commands. He moves all 4 extremities to command with no obvious lateralizing weakness. No facial asymmetry is noticed on cranial nerve testing. Sensory examination was inconsistent as the patient was not answering questions appropriately. No seizure-like activity is seen. IMPRESSION: 1. Altered mental status. 2. Hypernatremia. 3. Acute renal insufficiency. 4. Dehydration. 5. History of Alzheimer's dementia. 6. Multifactorial encephalopathy. 7. History of stroke. RECOMMENDATION: The patient's exact baseline is unknown but he does have history of advanced dementia and currently lives in an adult foster fdc. He likely has acute on top of chronic encephalopathy given his chronic dementia and now his hypernatremia and renal failure. Continue IV hydration as tolerated. I do recommend a nephrology consultation. Repeat labs have been ordered for the morning. An EEG has been ordered. Continue Eliquis and aspirin. I will continue to follow with you. Further Recommendations to follow. Thank you, Dr. Hernandez, for allowing me to participate in the care of your patient. If you have any questions, please feel free to contact me. MONIKA / CASAN: [phone] / JOHN
[2016-12-10] MEDS: HYDROCORTISONE SUPPOSITORY 25 MG SUPP RECTAL SCH ×2 (11:43→21:13)
[2016-12-10 11:59] LABS: Glucose,Whole Blood 263 mg/dL (75-99)
[2016-12-10] MEDS: DEXTROSE 5% IN WATER 1,000 ML IV SCH ×2 (14:04→21:13)
--- NOTE | 2016-12-10 14:55 | P.PN ---
Subjective This is an 86-year-old male patient of Dr. Hernandez with a past medical history of diabetes mellitus type 2, benign prostatic hypertrophy, hypertension , hyperlipidemia, coronary artery disease status post 3 stents, glaucoma, chronic atrial fibrillation on eliquis, dementia, obstructive sleep apnea, gout , psoriasis, patient is wheelchair bound and currently residing at [facility]. Patient's and daughter are at the bedside and give history. Apparently patient had a couple strokes one half weeks ago was the most recent. He has had difficulty of swallowing and holds food in his mouth for the last couple of days and also choking on food. He does normally recognize his and daughter and at this time family recognizes his but does not seem to be able to recall his daughter's name. He does not currently follow with the neurologist. He also has pain to the left hip with left leg contracture which is new. He came into [facility] emergency center for evaluation. He was found to have an elevated white count of 15.66, UN 66 and creatinine 2.3 and sodium of 159. Urinalysis was clear, nitrate and leukoesterase negative. Chest x-ray showed scarring or atelectasis at the level of the lingula. CAT scan of the brain showed atrophy. Left hip and pelvis x-rays show correlate for osteoarthritis, femoral acetabular impingement syndrome. No acute fracture or dislocation of the pelvis or left hip. Patient was admitted to the [facility] floor and consult requested with Dr. Tomas for acute renal failure. The therapy has evaluated him and plans to start a pured diet with thickened liquids. PT and OT added. Neurology consult also added. Blood culture and urine culture are in process. There is a stage II pressure ulcer to the right foot present on admission and waffle boot has been placed. 12/10: Patient is followed by nephrology. Sodium is down to 149 and creatinine is down 1.75. Patient is sitting up and eating his breakfast on his own without assistance. Patient's and daughter are at the bedside. They are asking for a hospital bed at [facility] which will be ordered. He will be continued on IV fluids of D5W at 100 mL per hour. Objective - Vital Signs Vital signs: Vital Signs Temp 96.4 F L 12/10/16 07:00 Pulse 77 12/10/16 07:00 Resp 16 12/10/16 07:00 BP 120/79 12/10/16 07:00 Pulse Ox 97 12/10/16 07:00 Intake & Output 12/09/16 12/10/16 12/10/16 18:59 06:59 18:59 Intake Total 850 Balance 850 Weight 86 kg Intake: Oral 850 Other: Voiding Method Incontinent Incontinent Incontinent # Voids 1 2 # Bowel Movements 2 - Exam Gen: This is an 86-year-old male patient. He is sitting up in bed and appears to be in no acute distress. HEENT: Head is atraumatic, normocephalic. Pupils equal, round. Sclerae is anicteric. NECK: Supple. No JVD. No lymphadenopathy. No thyromegaly. LUNGS: Clear to auscultation. No wheezes or rhonchi. No intercostal retractions. HEART: Regular rate and rhythm. No murmur. ABDOMEN: Soft. Bowel sounds are present. No masses. No tenderness. EXTREMITIES: No pedal edema. No calf tenderness. Contracture noted of the left leg. Waffle boot in place to the right foot. Spastic rigidity to the left upper arm. No tremors. NEUROLOGICAL: Patient is awake, alert and oriented x1. Patient is having trouble following simple commands. - Labs CBC & Chem 7: 12/10/16 07:48 12/10/16 07:48 Labs: Abnormal Lab Results - Last 24 Hours (Table) 12/09/16 12/09/16 12/09/16 Range/Units 08:43 12:16 16:48 WBC (3.8-10.6) k/uL RBC (4.30-5.90) m/uL Hgb (13.0-17.5) gm/dL Hct (39.0-53.0) % Neutrophils # (1.3-7.7) k/uL Lymphocytes # (1.0-4.8) k/uL PT (9.0-12.0) sec INR (<1.2) Sodium 155 H (137-145) mmol/L Chloride 119 H (98-107) mmol/L BUN 51 H (9-20) mg/dL Creatinine 1.86 H (0.66-1.25) mg/dL Glucose 258 H (74-99) mg/dL POC Glucose (mg/dL) 189 H 223 H (75-99) mg/dL Total Protein (6.3-8.2) g/dL Albumin (3.5-5.0) g/dL 12/09/16 12/10/16 12/10/16 Range/Units 20:44 07:18 07:48 WBC 15.1 H (3.8-10.6) k/uL RBC 3.94 L (4.30-5.90) m/uL Hgb 12.6 L (13.0-17.5) gm/dL Hct 37.7 L (39.0-53.0) % Neutrophils # 13.4 H (1.3-7.7) k/uL Lymphocytes # 0.9 L (1.0-4.8) k/uL PT (9.0-12.0) sec INR (<1.2) Sodium (137-145) mmol/L Chloride (98-107) mmol/L BUN (9-20) mg/dL Creatinine (0.66-1.25) mg/dL Glucose (74-99) mg/dL POC Glucose (mg/dL) 132 H 282 H (75-99) mg/dL Total Protein (6.3-8.2) g/dL Albumin (3.5-5.0) g/dL 12/10/16 12/10/16 Range/Units 07:48 07:48 WBC (3.8-10.6) k/uL RBC (4.30-5.90) m/uL Hgb (13.0-17.5) gm/dL Hct (39.0-53.0) % Neutrophils # (1.3-7.7) k/uL Lymphocytes # (1.0-4.8) k/uL PT 13.0 H (9.0-12.0) sec INR 1.3 H (<1.2) Sodium 149 H (137-145) mmol/L Chloride 113 H (98-107) mmol/L BUN 40 H (9-20) mg/dL Creatinine 1.75 H (0.66-1.25) mg/dL Glucose 250 H (74-99) mg/dL POC Glucose (mg/dL) (75-99) mg/dL Total Protein 5.2 L (6.3-8.2) g/dL Albumin 2.7 L (3.5-5.0) g/dL Microbiology - Last 24 Hours (Table) 12/08/16 12:40 Urine Culture - Final Urine,Catheterized 12/08/16 12:29 Blood Culture - Preliminary Blood No Growth after 24 hours Assessment and Plan Plan: 1. Metabolic encephalopathy secondary to hypernatremia, dehydration, acute kidney injury and possible aspiration pneumonia. Continue IV fluids of D5 at 100 mL per hour. Consult with neurology, nephrology. PT, OT, speech therapy. Diet recommended by speech is pureed with thickened liquids. IV antibiotics switched to Zosyn. Lasix and lisinopril placed on hold. 2. Chronic atrial fibrillation. Continue eliquis. 3. Coronary artery disease status post 3 stents. Continue Lipitor 20 mg at bedtime, aspirin 81 mg daily. 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 Patient has been on Exelon patch. Neurology consult. 5. Left hip pain and contracture with negative x-rays. Physical therapy and occupational therapy. Patient is normally wheelchair bound. 6. Recent stroke. Continue aspirin 81 mg daily, Lipitor 20 mg daily. 7. Diabetes mellitus type 2. Continue Januvia/tradjenta and Humalog scale before meals and at bedtime. 8. Benign prostatic hypertrophy. Continue Flomax 0.4 mg daily. 9. Hypertension. Lisinopril and Lasix placed on hold. 10. Gout. Continue Uloric. 11. Hyperlipidemia. Continue Lipitor. 12. DVT prophylaxis. Patient is on eliquis. 13. Gastric intestinal prophylaxis. Pepcid. 14. Obstructive sleep apnea on CPAP Discharge plan: Patient will be returning to [facility] Impression and plan of care have been directed as dictated by the signing physician. Angela Hartley nurse practitioner acting as scribe for signing physician.
--- NOTE | 2016-12-10 15:16 | P.PN ---
Subjective Principal diagnosis: Altered mental status This pleasant 86-year-old male continuing be evaluated by the neurology service for altered mental status. He was brought to [facility] emergency room for confusion. He does have a history of advanced Alzheimer's dementia. Computed tomography scan of the brain showed no acute intracranial abnormalities. General atrophy was seen. His is present at the time of my exam and she says that she has at his baseline mentation. He was found to have elevated sodium and that is being corrected. He was a subjective history of stroke, but in speaking to his , this was never confirmed. She says he had periods of confusion which they thought may have been a stroke. He is on Eliquis and aspirin. An EEG has just been performed. Objective - Vital Signs Vital signs: Vital Signs Temp 100.2 F H 12/10/16 14:38 Pulse 68 12/10/16 14:38 Resp 18 12/10/16 14:38 BP 128/60 12/10/16 14:38 Pulse Ox 99 12/10/16 14:38 Intake & Output 12/09/16 12/10/16 12/10/16 18:59 06:59 18:59 Intake Total 850 Balance 850 Weight 86 kg Intake: Oral 850 Other: Voiding Method Incontinent Incontinent Incontinent # Voids 1 2 3 # Bowel Movements 2 1 - Constitutional General appearance: Present: average body habitus, no acute distress - EENT Eyes: Present: EOMI, PERRLA. Absent: abnormal pupil, ptosis ENT: Present: hard of hearing - Neck Neck: Present: normal ROM. Absent: rigidity - Respiratory Respiratory: negative: prolonged expiration, prolonged inspiration - Gastrointestinal General gastrointestinal: Absent: distended, tenderness - Neurologic Neurologic Comment(s): Issues awake alert and oriented to person only. There is no lateralizing weakness. There is no facial asymmetry. Or seizure-like activities are seen. - Labs CBC & Chem 7: 12/10/16 07:48 12/10/16 07:48 Labs: Abnormal Lab Results - Last 24 Hours (Table) 12/09/16 12/09/16 12/10/16 Range/Units 16:48 20:44 07:18 WBC (3.8-10.6) k/uL RBC (4.30-5.90) m/uL Hgb (13.0-17.5) gm/dL Hct (39.0-53.0) % Neutrophils # (1.3-7.7) k/uL Lymphocytes # (1.0-4.8) k/uL PT (9.0-12.0) sec INR (<1.2) Sodium (137-145) mmol/L Chloride (98-107) mmol/L BUN (9-20) mg/dL Creatinine (0.66-1.25) mg/dL Glucose (74-99) mg/dL POC Glucose (mg/dL) 223 H 132 H 282 H (75-99) mg/dL Total Protein (6.3-8.2) g/dL Albumin (3.5-5.0) g/dL 12/10/16 12/10/16 12/10/16 Range/Units 07:48 07:48 07:48 WBC 15.1 H (3.8-10.6) k/uL RBC 3.94 L (4.30-5.90) m/uL Hgb 12.6 L (13.0-17.5) gm/dL Hct 37.7 L (39.0-53.0) % Neutrophils # 13.4 H (1.3-7.7) k/uL Lymphocytes # 0.9 L (1.0-4.8) k/uL PT 13.0 H (9.0-12.0) sec INR 1.3 H (<1.2) Sodium 149 H (137-145) mmol/L Chloride 113 H (98-107) mmol/L BUN 40 H (9-20) mg/dL Creatinine 1.75 H (0.66-1.25) mg/dL Glucose 250 H (74-99) mg/dL POC Glucose (mg/dL) (75-99) mg/dL Total Protein 5.2 L (6.3-8.2) g/dL Albumin 2.7 L (3.5-5.0) g/dL 12/10/16 Range/Units 11:56 WBC (3.8-10.6) k/uL RBC (4.30-5.90) m/uL Hgb (13.0-17.5) gm/dL Hct (39.0-53.0) % Neutrophils # (1.3-7.7) k/uL Lymphocytes # (1.0-4.8) k/uL PT (9.0-12.0) sec INR (<1.2) Sodium (137-145) mmol/L Chloride (98-107) mmol/L BUN (9-20) mg/dL Creatinine (0.66-1.25) mg/dL Glucose (74-99) mg/dL POC Glucose (mg/dL) 263 H (75-99) mg/dL Total Protein (6.3-8.2) g/dL Albumin (3.5-5.0) g/dL Microbiology - Last 24 Hours (Table) 12/08/16 12:40 Urine Culture - Final Urine,Catheterized 12/08/16 12:29 Blood Culture - Preliminary Blood No Growth after 24 hours Assessment and Plan (1) Hypernatremia Status: Acute (2) Acute renal insufficiency Status: Acute (3) Dehydration Status: Suspected (4) Alzheimer's dementia Status: Chronic (5) Acute metabolic encephalopathy Status: Acute (6) Altered mental status Status: Acute Plan: According to his he is essentially at baseline. He is most likely experiencing acute on top of chronic encephalopathy. This is likely due to his dehydration and hypernatremia with acute renal insufficiency. Continue treatment of this. An EEG has been performed. Barring any unforeseen abnormalities she would be discharged from a neurological standpoint. I have performed a history and physical on the above patient. I have reviewed the above note, and agree.
[2016-12-10 16:57] LABS: Glucose,Whole Blood 251 mg/dL (75-99)
[2016-12-10] MEDS ORDERED: ACETAMINOPHEN TAB 325 MG TAB PO PRN (18:17)
--- NOTE | 2016-12-10 19:29 | XR ---
EXAMINATION TYPE: XR chest 2V DATE OF EXAM: 12/10/2016 COMPARISON: 12/08/2016 HISTORY: Unresponsiveness, suspect aspiration TECHNIQUE: Frontal and lateral views of the chest are obtained. FINDINGS: There is no focal air space opacity, pleural effusion, or pneumothorax seen. The cardiac silhouette size is mildly enlarged, and the thoracic aorta is tortuous. The osseous structures are intact. IMPRESSION: No acute cardiopulmonary process.
[2016-12-10 20:34] LABS: Glucose,Whole Blood 149 mg/dL (75-99)
[2016-12-10] MEDS: ATORVASTATIN 20 MG TAB PO SCH (21:13)
[2016-12-10] MEDS: LATANOPROST 0.005% OPHTH DROPS 2.5 ML BTL BOTH EYES SCH (21:13)
[2016-12-11] MEDS: PIPERACILLIN-TAZOBACTAM 3.375 GM in DEXTROSE/WATER 1 50ML.BAG IVPB SCH ×4 (02:08→23:15)
[2016-12-11] MEDS: DEXTROSE 5% IN WATER 1,000 ML IV SCH ×2 (06:39→15:33)
[2016-12-11 07:20] LABS: Glucose,Whole Blood 164 mg/dL (75-99)
--- NOTE | 2016-12-11 07:33 | EEG ---
ELECTROENCEPHALOGRAM REPORT DATE OF SERVICE: 12/10/2016 REASON FOR TESTING: Altered mental status. DESCRIPTION OF THE PROCEDURE: This EEG was performed using a 21 channel digital electroencephalograph, following international 10 - 20 system. DESCRIPTION OF THE RECORDING: From the beginning of the tracing, and with patient's eyes closed, the background rhythm was mostly consisting of 7 hertz theta frequency in the posterior occipital leads. No obvious asymmetry is seen. Occasional muscle and movement artifact are seen. Photic stimulation was performed with a minimal driving response seen. No pathological waves were elicited. Hyperventilation was not performed. The patient remains awake throughout the tracing. No epileptiform discharges were seen. His EKG lead showed a regular rate and rhythm. INTERPRETATION: This awake EEG is abnormal due to the presence of generalized slowing of the background rhythm, mostly in the theta range. This is consistent with mild encephalopathy. No epileptiform discharges were seen. The absence of epileptiform discharges does not rule out the diagnosis of epilepsy, therefore clinical correlation is recommended. MMANA MARIA / MAGGIE: [id number] /
[2016-12-11] MEDS: INSULIN LISPRO (humaLOG) 300 UNIT/3 ML VIAL SQ SCH ×4 (07:54→21:27)
[2016-12-11] MEDS: CHOLECALCIFEROL 1,000 UNIT TAB PO SCH (07:55)
[2016-12-11] MEDS: ALLOPURINOL 100 MG TAB PO SCH (07:55)
[2016-12-11] MEDS: ASPIRIN 81 MG CHEW PO SCH (07:55)
[2016-12-11] MEDS: RIVASTIGMINE 13.3MG/24HR PATCH TRANSDERM SCH (07:56)
[2016-12-11] MEDS: LINAGLIPTIN 5 MG TABLET PO SCH (07:56)
[2016-12-11] MEDS: FAMOTIDINE 20 MG TAB PO SCH (07:56)
[2016-12-11] MEDS: TAMSULOSIN 0.4 MG CAP.ER.24H PO SCH (07:56)
[2016-12-11] MEDS: MEMANTINE 5 MG TAB PO SCH ×2 (07:57→20:42)
[2016-12-11] MEDS: HYDROCORTISONE SUPPOSITORY 25 MG SUPP RECTAL SCH ×2 (07:57→21:04)
[2016-12-11 08:55] LABS: CH 31.5; CHCM 33.4; HCT 33.8 % (39.0-53.0); HDW 3.38; HGB 11.4 gm/dL (13.0-17.5); MCHC 33.7 g/dL (31.0-37.0); MCV 94.7 fL (80.0-100.0); Mean Platelet Volume 7.2; RBC 3.57 m/uL (4.30-5.90); RDW 13.3 % (11.5-15.5); WBC 14.1 k/uL (3.8-10.6)
[2016-12-11 09:20] LABS: Calcium 8.2 mg/dL (8.4-10.2); Potassium 3.3 mmol/L (3.5-5.1); Total Bilirubin 0.8 mg/dL (0.2-1.3); Total Protein 5.2 g/dL (6.3-8.2)
[2016-12-11] MEDS ORDERED: POTASSIUM CHLORIDE ER 20 MEQ TAB.ER PO STA (11:21)
[2016-12-11 11:57] LABS: Glucose,Whole Blood 206 mg/dL (75-99)
[2016-12-11 17:17] LABS: Glucose,Whole Blood 274 mg/dL (75-99)
--- NOTE | 2016-12-11 17:17 | P.PN ---
Subjective his is an 86-year-old male patient of Dr. Hernandez with a past medical history of diabetes mellitus type 2, benign prostatic hypertrophy, hypertension , hyperlipidemia, coronary artery disease status post 3 stents, glaucoma, chronic atrial fibrillation on eliquis, dementia, obstructive sleep apnea, gout , psoriasis, patient is wheelchair bound and currently residing at [facility]. Patient's and daughter are at the bedside and give history. Apparently patient had a couple strokes one half weeks ago was the most recent. He has had difficulty of swallowing and holds food in his mouth for the last couple of days and also choking on food. He does normally recognize his and daughter and at this time family recognizes his but does not seem to be able to recall his daughter's name. He does not currently follow with the neurologist. He also has pain to the left hip with left leg contracture which is new. He came into [facility] emergency center for evaluation. He was found to have an elevated white count of 15.66, UN 66 and creatinine 2.3 and sodium of 159. Urinalysis was clear, nitrate and leukoesterase negative. Chest x-ray showed scarring or atelectasis at the level of the lingula. CAT scan of the brain showed atrophy. Left hip and pelvis x-rays show correlate for osteoarthritis, femoral acetabular impingement syndrome. No acute fracture or dislocation of the pelvis or left hip. Patient was admitted to the [facility] floor and consult requested with Dr. Tomas for acute renal failure. The therapy has evaluated him and plans to start a pured diet with thickened liquids. PT and OT added. Neurology consult also added. Blood culture and urine culture are in process. There is a stage II pressure ulcer to the right foot present on admission and waffle boot has been placed. 12/10: Patient is followed by nephrology. Sodium is down to 149 and creatinine is down 1.75. Patient is sitting up and eating his breakfast on his own without assistance. Patient's and daughter are at the bedside. They are asking for a hospital bed at [facility] which will be ordered. He will be continued on IV fluids of D5W at 100 mL per hour. 12/11: Patient's progressing better, however he has a temperature of 100.2 last night, patient's to on Zosyn for suspected aspiration pneumonia, appetite has improved significant debility, sodium levels currently at 147, potassium low at 3.3 which is being replaced, creatinine at 1.8 the liver function test is normal IV fluids will be locked late tonight with transition to oral Augmentin liquid in the morning. Patient had small hemorrhoid bleed today eliquist is on hold, Anusol suppository ma if patient continues to improve clinically, possible discharge in the next 1-2 days Objective - Vital Signs Vital signs: Vital Signs Temp 98.0 F 12/11/16 15:00 Pulse 71 12/11/16 15:00 Resp 18 12/11/16 15:00 BP 117/56 12/11/16 15:00 Pulse Ox 100 12/11/16 15:00 Intake & Output 12/10/16 12/11/16 12/11/16 18:59 06:59 18:59 Other: Voiding Method Incontinent Diaper Incontinent # Voids 3 2 4 # Bowel Movements 1 2 2 - Constitutional General appearance: Present: average body habitus, cooperative, no acute distress - EENT Eyes: Present: anicteric sclerae, EOMI, dentition normal, normal appearance ENT: Present: hard of hearing, NA/AT, normal oropharynx - Neck Neck: Present: normal ROM - Respiratory Respiratory: bilateral: CTA, negative: diminished, dullness, rales, rhonchi - Cardiovascular Rhythm: regular Abnormal Heart Sounds: Absent: systolic murmur, diastolic murmur, rub, S3 Gallop , S4 Gallop, click, other - Gastrointestinal General gastrointestinal: Present: normal bowel sounds, soft - Integumentary Integumentary: Present: normal, normal turgor - Neurologic Neurologic: Present: CNII-XII intact - Musculoskeletal Musculoskeletal: Present: generalized weakness, strength equal bilaterally - Psychiatric Psychiatric: Present: appropriate affect - Labs CBC & Chem 7: 12/12/16 07:13 12/12/16 07:13 Labs: Abnormal Lab Results - Last 24 Hours (Table) 12/10/16 12/11/16 12/11/16 Range/Units 20:23 07:17 08:20 WBC 14.1 H (3.8-10.6) k/uL RBC 3.57 L (4.30-5.90) m/uL Hgb 11.4 L (13.0-17.5) gm/dL Hct 33.8 L (39.0-53.0) % Sodium (137-145) mmol/L Potassium (3.5-5.1) mmol/L Chloride (98-107) mmol/L BUN (9-20) mg/dL Creatinine (0.66-1.25) mg/dL Glucose (74-99) mg/dL POC Glucose (mg/dL) 149 H 164 H (75-99) mg/dL Calcium (8.4-10.2) mg/dL Total Protein (6.3-8.2) g/dL Albumin (3.5-5.0) g/dL 12/11/16 12/11/16 Range/Units 08:20 11:47 WBC (3.8-10.6) k/uL RBC (4.30-5.90) m/uL Hgb (13.0-17.5) gm/dL Hct (39.0-53.0) % Sodium 147 H (137-145) mmol/L Potassium 3.3 L (3.5-5.1) mmol/L Chloride 110 H (98-107) mmol/L BUN 34 H (9-20) mg/dL Creatinine 1.80 H (0.66-1.25) mg/dL Glucose 188 H (74-99) mg/dL POC Glucose (mg/dL) 206 H (75-99) mg/dL Calcium 8.2 L (8.4-10.2) mg/dL Total Protein 5.2 L (6.3-8.2) g/dL Albumin 2.7 L (3.5-5.0) g/dL Microbiology - Last 24 Hours (Table) 12/08/16 12:29 Blood Culture - Preliminary Blood No Growth after 72 hours Assessment and Plan Plan: 1. Metabolic encephalopathy secondary to hypernatremia, dehydration, acute kidney injury and possible aspiration pneumonia. Continue IV fluids of D5 at 100 mL per hour. Consult with neurology, nephrology. PT, OT, speech therapy. Diet recommended by speech is pureed with thickened liquids. IV antibiotics switched to Zosyn. Lasix and lisinopril placed on hold. 2. Chronic atrial fibrillation. Continue eliquis. 3. Coronary artery disease status post 3 stents. Continue Lipitor 20 mg at bedtime, aspirin 81 mg daily. 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 Patient has been on Exelon patch. Neurology consult. 5. Left hip pain and contracture with negative x-rays. Physical therapy and occupational therapy. Patient is normally wheelchair bound. 6. Recent stroke. Continue aspirin 81 mg daily, Lipitor 20 mg daily. 7. Diabetes mellitus type 2. Continue Januvia/tradjenta and Humalog scale before meals and at bedtime. 8. Benign prostatic hypertrophy. Continue Flomax 0.4 mg daily. 9. Hypertension. Lisinopril and Lasix placed on hold. 10. Gout. Continue Uloric. 11. Hyperlipidemia. Continue Lipitor. 12. DVT prophylaxis. Patient is on eliquis. 13. Gastric intestinal prophylaxis. Pepcid. 14. Obstructive sleep apnea on CPAP 15. Febrile illness, patient is on Zosyn, suspect aspiration pneumonitis, chest x-ray currently negative for significant consolidation, urinalysis negative no abdominal complaints Discharge plan: Patient will be returning to [facility]
[2016-12-11] MEDS: ATORVASTATIN 20 MG TAB PO SCH (19:04)
[2016-12-11] MEDS: LATANOPROST 0.005% OPHTH DROPS 2.5 ML BTL BOTH EYES SCH (19:04)
[2016-12-11 20:43] LABS: Glucose,Whole Blood 261 mg/dL (75-99)
[2016-12-12 07:46] LABS: Glucose,Whole Blood 171 mg/dL (75-99)
[2016-12-12 07:53] LABS: Basophils % (A) 0 %; CHCM 35.4; Eosinophils # (A) 0.2 k/uL (0-0.7); Eosinophils % (A) 2 %; HCT 30.9 % (39.0-53.0); HDW 3.31; HGB 10.5 gm/dL (13.0-17.5); Luc # (Auto) 0.15; Luc % (Auto) 1; Lymphocytes % (A) 9 %; MCHC 34.1 g/dL (31.0-37.0); MCV 93.8 fL (80.0-100.0); Mean Platelet Volume 7.3; Monocytes # (A) 0.5 k/uL (0-1.0); Monocytes % (A) 4 %; Neutrophils # (A) 8.6 k/uL (1.3-7.7); Neutrophils % (A) 83 %; RBC 3.29 m/uL (4.30-5.90); WBC 10.4 k/uL (3.8-10.6); WBC (Perox) 11.26
[2016-12-12 08:09] LABS: Calcium 7.7 mg/dL (8.4-10.2); Potassium 3.2 mmol/L (3.5-5.1)
[2016-12-12 08:10] VITALS: BP 111/60; PULSE 69; RESP 17; TEMP 97.7
[2016-12-12] MEDS: RIVASTIGMINE 13.3MG/24HR PATCH TRANSDERM SCH (08:16)
[2016-12-12] MEDS: INSULIN LISPRO (humaLOG) 300 UNIT/3 ML VIAL SQ SCH ×2 (08:17→12:47)
[2016-12-12] MEDS: ASPIRIN 81 MG CHEW PO SCH (08:17)
[2016-12-12] MEDS: LINAGLIPTIN 5 MG TABLET PO SCH (08:18)
[2016-12-12] MEDS: MEMANTINE 5 MG TAB PO SCH (08:18)
[2016-12-12] MEDS: TAMSULOSIN 0.4 MG CAP.ER.24H PO SCH (08:18)
[2016-12-12] MEDS: PIPERACILLIN-TAZOBACTAM 3.375 GM in DEXTROSE/WATER 1 50ML.BAG IVPB SCH (08:18)
[2016-12-12] MEDS: FAMOTIDINE 20 MG TAB PO SCH (08:18)
[2016-12-12] MEDS: ALLOPURINOL 100 MG TAB PO SCH (08:18)
[2016-12-12] MEDS: CHOLECALCIFEROL 1,000 UNIT TAB PO SCH (08:18)
[2016-12-12] MEDS: HYDROCORTISONE SUPPOSITORY 25 MG SUPP RECTAL SCH (08:18)
[2016-12-12] MEDS ORDERED: Potassium Replacement Protocol 1 EACH MISC MISCELLANE PRN (09:49)
[2016-12-12] MEDS: POTASSIUM CHLORIDE ER 20 MEQ TAB.ER PO SCH ×2 (10:59→12:47)
--- NOTE | 2016-12-12 11:24 | PN ---
PROGRESS NOTE Patient is seen for followup for acute kidney injury and hypernatremia. He is maintained on D5W. His renal function has improved along with improvement in serum sodium as well. Serum creatinine is down to 1.8 from 2.3 mg/dL on initial admission. Sodium is down to 147 from 159 on initial admission. PHYSICAL EXAMINATION: Currently, patient is awake he is comfortable, is not in any acute distress. Blood pressure is 117/56, heart rate 71 per minute. He is afebrile examination of the heart S1, S2. Examination lungs decreased breath sounds at bases. Abdomen is soft, nontender. Examination lower extremity shows no significant edema. Patient has contractures on the right lower extremity. He also has weakness on his right upper and lower extremity. LABS SHOW: Sodium 147, potassium 3.3, BUN 34, serum creatinine 1.8. ASSESSMENT: 1. Acute kidney injury, prerenal, currently improving with IV hydration. Patient is incontinent and voids in a diaper. 2. Hypernatremia associated with free water deficit, currently improved. 3. Altered mentation secondary to electrolyte imbalance and renal failure and dehydration, currently slowly improving. 4. Hypokalemia. Will replace. 5. History of cerebrovascular accident. 6. Chronic atrial fibrillation with controlled ventricular response. Maintained on Eliquis. 7. Dementia. PLAN: The plan is continue the D5W. Repeat labs in a.m. Replace potassium. MMODL / IJN: [id number] /
[2016-12-12 12:16] LABS: Glucose,Whole Blood 229 mg/dL (75-99)
--- NOTE | 2016-12-12 18:02 | P.DS ---
Providers Date of admission: 12/08/16 14:20 Expected date of discharge: 12/12/16 Attending physician: Atif Hernandez Consults: 12/08/16 16:44 Consult Physician Routine Consulting Provider: Yoly Tomas Consult Reason/Comments: renal failure Do you want consulting provider notified?: Yes 12/09/16 12:05 Consult Physician Routine Consulting Provider: Marlen Segundo Consult Reason/Comments: mental status changes, susp for parkinson Do you want consulting provider notified?: Yes Primary care physician: [facility] Course: this is an 86-year-old male patient of Dr. Hernandez with a past medical history of diabetes mellitus type 2, benign prostatic hypertrophy, hypertension , hyperlipidemia, coronary artery disease status post 3 stents, glaucoma, chronic atrial fibrillation on eliquis, dementia, obstructive sleep apnea, gout , psoriasis, patient is wheelchair bound and currently residing at [facility]. Patient's and daughter are at the bedside and give history. Apparently patient had a couple strokes one half weeks ago was the most recent. He has had difficulty of swallowing and holds food in his mouth for the last couple of days and also choking on food. He does normally recognize his and daughter and at this time family recognizes his but does not seem to be able to recall his daughter's name. He does not currently follow with the neurologist. He also has pain to the left hip with left leg contracture which is new. He came into [facility] emergency center for evaluation. He was found to have an elevated white count of 15.66, UN 66 and creatinine 2.3 and sodium of 159. Urinalysis was clear, nitrate and leukoesterase negative. Chest x-ray showed scarring or atelectasis at the level of the lingula. CAT scan of the brain showed atrophy. Left hip and pelvis x-rays show correlate for osteoarthritis, femoral acetabular impingement syndrome. No acute fracture or dislocation of the pelvis or left hip. [facility] and consult requested with Dr. Tomas for acute renal failure. The therapy has evaluated him and plans to start a pured diet with thickened liquids. PT and OT added. Neurology consult also added. Blood culture and urine culture are in process. There is a stage II pressure ulcer to the right foot present on admission and waffle boot has been placed. 12/10: Patient is followed by nephrology. Sodium is down to 149 and creatinine is down 1.75. Patient is sitting up and eating his breakfast on his own without assistance. Patient's and daughter are at the bedside. They are asking for a hospital bed at [facility] which will be ordered. He will be continued on IV fluids of D5W at 100 mL per hour. 12/11: Patient's progressing better, however he has a temperature of 100.2 last night, patient's to on Zosyn for suspected aspiration pneumonia, appetite has improved significant debility, sodium levels currently at 147, potassium low at 3.3 which is being replaced, creatinine at 1.8 the liver function test is normal IV fluids will be locked late tonight with transition to oral Augmentin liquid in the morning. Patient had small hemorrhoid bleed today eliquist is on hold, Anusol suppository ma if patient continues to improve clinically, possible discharge in the next 1-2 days Discharge diagnoses and progress of care 1. Metabolic encephalopathy secondary to hypernatremia, dehydration, acute kidney injury and possible aspiration pneumonia. Improved on discharge Continue IV fluids of D5 at 100 mL per hour. Consult with neurology, nephrology. PT, OT, speech therapy. Diet recommended by speech is pureed with thickened liquids. IV antibiotics switched to Zosyn. Lasix and lisinopril and restarted at 50% of normal home dose 2. Chronic atrial fibrillation asymptomatic. Continue eliquis. 3. Coronary artery disease status post 3 stents asymptomatic. Continue Lipitor 20 mg at bedtime, aspirin 81 mg daily. 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 Patient has been on Exelon patch. Neurology consult. 5. Left hip pain and contracture with negative x-rays. Physical therapy and occupational therapy. Patient is normally wheelchair bound. 6. Recent stroke left hemiparesis. Continue aspirin 81 mg daily, Lipitor 20 mg daily. 7. Diabetes mellitus type 2. Continue Januvia/tradjenta and Humalog scale before meals and at bedtime. 8. Benign prostatic hypertrophy. Continue Flomax 0.4 mg daily. 9. Hypertension. Lisinopril and Lasix placed on hold. 10. Gout. Continue Uloric. 11. Hyperlipidemia. Continue Lipitor. 12. DVT prophylaxis. Patient is on eliquis. 13. Gastric intestinal prophylaxis. Pepcid. 14. Obstructive sleep apnea on CPAP 15. Febrile illness suspect aspiration pneumonia, Augmentin liquid 600 mg twice a day, patient received Zosyn while in the hospital, patient was seen by speech evaluation with dietary modifications to include thickened liquid and pur ed diet Discharge plan: Patient will be returning to [facility] with therapies PT OT and speech with labs in the next 1 week, follow up with consultants nephrology Dr. Thom Segundo neurology Discharge Medication List Apixaban [Eliquis] 2.5 mg PO BID@799,199912/08/16 [History] Aspirin EC [Ecotrin Low Dose] 81 mg PO DAILY@79912/08/16 [History] Atorvastatin Calcium [Lipitor] 20 mg PO HS@199912/08/16 [History] Cholecalciferol (Vitamin D3) [Vitamin D3] 2,000 unit PO DAILY@79912/08/16 [ History] Febuxostat [Uloric] 40 mg PO DAILY@79912/08/16 [History] Latanoprost [Xalatan 0.005%] 1 drop BOTH EYES HS@199912/08/16 [History] Magnesium Hydroxide [Milk of Magnesia] 2,400 mg PO DAILY PRN 12/08/16 [History] Memantine HCl [Namenda Xr] 14 mg PO DAILY@79912/08/16 [History] Rivastigmine [Exelon 13.3MG/24Hr Patch] 1 patch TRANSDERM DAILY@79912/08/16 [ History] Tamsulosin HCl [Flomax] 0.4 mg PO DAILY@79912/08/16 [History] Amoxic-Pot Clav 600-42.9MG/5Ml [Augmentin 600-42.9 mg/5 ml Liquid] 5 ml PO Q12H #7 ml 12/12/16 [Rx] Furosemide [Lasix] 20 mg PO DAILY@799 #0 12/12/16 [Rx] Hydrocortisone Suppository [Anusol-Hc] 25 mg RECTAL BID #14 suppositor 12/12/16 [Rx] Lisinopril [Zestril] 5 mg PO HS@1999 #0 12/12/16 [Rx] sitaGLIPtin [Januvia] 25 mg PO DAILY@799 #0 12/12/16 [Rx] Patient Condition at Discharge: Fair Plan - Discharge Summary New Discharge Prescriptions: New Amoxic-Pot Clav 600-42.9MG/5Ml [Augmentin 600-42.9 mg/5 ml Liquid] 5 ml PO Q12H #7 ml Hydrocortisone Suppository [Anusol-Hc] 25 mg RECTAL BID #14 suppositor Continue Memantine HCl [Namenda Xr] 14 mg PO DAILY@0800 Febuxostat [Uloric] 40 mg PO DAILY@0800 Latanoprost [Xalatan 0.005%] 1 drop BOTH EYES HS@1999 Cholecalciferol (Vitamin D3) [Vitamin D3] 2,000 unit PO DAILY@0800 Tamsulosin HCl [Flomax] 0.4 mg PO DAILY@0800 Aspirin EC [Ecotrin Low Dose] 81 mg PO DAILY@0800 Apixaban [Eliquis] 2.5 mg PO BID@799,1999 Atorvastatin Calcium [Lipitor] 20 mg PO HS@1999 Rivastigmine [Exelon 13.3MG/24Hr Patch] 1 patch TRANSDERM DAILY@0800 Magnesium Hydroxide [Milk of Magnesia] 2,400 mg PO DAILY PRN PRN Reason: Constipation Changed Furosemide [Lasix] 20 mg PO DAILY@0800 #0 Lisinopril [Zestril] 5 mg PO HS@1999 #0 sitaGLIPtin [Januvia] 25 mg PO DAILY@0800 #0 Discontinued Levofloxacin [Levaquin] 750 mg PO HS@1999 Discharge Medication List Apixaban [Eliquis] 2.5 mg PO BID@0800,199912/08/16 [History] Aspirin EC [Ecotrin Low Dose] 81 mg PO DAILY@0800 12/08/16 [History] Atorvastatin Calcium [Lipitor] 20 mg PO HS@199912/08/16 [History] Cholecalciferol (Vitamin D3) [Vitamin D3] 2,000 unit PO DAILY@0800 12/08/16 [ History] Febuxostat [Uloric] 40 mg PO DAILY@0800 12/08/16 [History] Latanoprost [Xalatan 0.005%] 1 drop BOTH EYES HS@199912/08/16 [History] Magnesium Hydroxide [Milk of Magnesia] 2,400 mg PO DAILY PRN 12/08/16 [History] Memantine HCl [Namenda Xr] 14 mg PO DAILY@0800 12/08/16 [History] Rivastigmine [Exelon 13.3MG/24Hr Patch] 1 patch TRANSDERM DAILY@0800 12/08/16 [ History] Tamsulosin HCl [Flomax] 0.4 mg PO DAILY@0800 12/08/16 [History] Amoxic-Pot Clav 600-42.9MG/5Ml [Augmentin 600-42.9 mg/5 ml Liquid] 5 ml PO Q12H #7 ml 12/12/16 [Rx] Furosemide [Lasix] 20 mg PO DAILY@0800 #0 12/12/16 [Rx] Hydrocortisone Suppository [Anusol-Hc] 25 mg RECTAL BID #14 suppositor 12/12/16 [Rx] Lisinopril [Zestril] 5 mg PO HS@2000 #0 12/12/16 [Rx] sitaGLIPtin [Januvia] 25 mg PO DAILY@0800 #0 12/12/16 [Rx] Follow up Appointment(s)/Referral(s): [facility], [NON-STAFF] - Atif Hernandez MD [Primary Care Provider] - 1-2 days Joe Bernard DO [STAFF PHYSICIAN] - 2 Weeks Ambulatory/Diagnostic Orders: Complete Blood Count w/diff [LAB.AMB] Location: Determined By Patient Comprehensive Metabolic Panel [LAB.AMB] Location: Determined By Patient Patient Instructions/Handouts: Acute Kidney Injury (DC) Activity/Diet/Wound Care/Special Instructions: Discharge to [facility] Cardiac, diabetic diet- pureed with thickened liquids. Aspiration precautions. Change positions every 2 hours while awake, keep heels elevated and use waffle boots. Decub to heel to be monitored twice daily.Out of bed daily and up to chair. Continue Cpap as previously scheduled. Discharge Disposition: HOME WITH HOME HEALTH SERVICES
== END 2016-12-12 13:56 | disposition home health service (06) | DRG 682 ==
LOC: EC 12:04 → 4MS4W 14:20
PROVIDERS: ADMIT Internal Medicine Geriatric Medicine; ATTEND Internal Medicine Geriatric Medicine
DX: N17.9 Acute kidney failure, unspecified (principal); G93.41 Metabolic encephalopathy; J69.0 Pneumonitis due to inhalation of food and vomit; E87.0 Hyperosmolality and hypernatremia; E11.621 Type 2 diabetes mellitus with foot ulcer; G20 Parkinson's disease; I48.2 Chronic atrial fibrillation; E86.0 Dehydration; E11.39 Type 2 diabetes mellitus with other diabetic ophthalmic complication; I10 Essential (primary) hypertension; I69.354 Hemiplegia and hemiparesis following cerebral infarction affecting left non-dominant side; G30.9 Alzheimer's disease, unspecified; F02.80 Dementia in other diseases classified elsewhere, unspecified severity, without behavioral disturbance, psychotic disturbance, mood disturbance, and anxiety; L97.519 Non-pressure chronic ulcer of other part of right foot with unspecified severity; L89.92 Pressure ulcer of unspecified site, stage 2; E78.5 Hyperlipidemia, unspecified; M10.9 Gout, unspecified; E87.6 Hypokalemia; G47.33 Obstructive sleep apnea (adult) (pediatric); M25.552 Pain in left hip; N40.0 Benign prostatic hyperplasia without lower urinary tract symptoms; I25.10 Atherosclerotic heart disease of native coronary artery without angina pectoris; H40.9 Unspecified glaucoma; K64.9 Unspecified hemorrhoids; R32 Unspecified urinary incontinence; Z95.5 Presence of coronary angioplasty implant and graft; Z79.01 Long term (current) use of anticoagulants; Z79.899 Other long term (current) drug therapy; Z79.82 Long term (current) use of aspirin; Z99.3 Dependence on wheelchair; Z91.013 Allergy to seafood; Z79.84 Long term (current) use of oral hypoglycemic drugs; Z82.49 Family history of ischemic heart disease and other diseases of the circulatory system; Z83.3 Family history of diabetes mellitus; Z87.891 Personal history of nicotine dependence; Z90.49 Acquired absence of other specified parts of digestive tract; Z87.19 Personal history of other diseases of the digestive system
CPT/HCPCS: 36415; 51701; 70450; 71020; 73502; 80048; 80053; 81003; 82272; 82550; 82553; 83036; 83735; 84100; 84295; 84484; 85025; 85027; 85610; 85730; 87040; 87086; 93005; 95819; 96361; 96365; 99285